=== PATIENT | female | born 1960 | race Caucasian/White ===

== ENCOUNTER 2021-08-01 15:35 | Emergency (ER) | payer MEDICAID, OTHER ==
[~2021-08-01] VITALS: Ht 170.2 cm; Wt 104.3 kg
[~2021-08-01 15:35] MED LIST: HYDR25TA32 PO; RABE20EC17 PO; [UNRECOGNIZED DRUG - CODE] PO
[2021-08-01] MEDS ORDERED: ONDANSETRON 4 MG/2 ML VIAL IVP ONE (15:55)
[2021-08-01] MEDS ORDERED: NACL 0.9% 2,000 ML IV ONE (15:55)
--- NOTE | 2021-08-01 16:01 | NUR ---
Patient W/C assisted to bed 05.
[2021-08-01 16:07] VITALS: BP 114/70
--- NOTE | 2021-08-01 16:15 | NUR ---
EMT at bedside for EKG
--- NOTE | 2021-08-01 16:20 | NUR ---
60 y/o F referred by Dr. Veliz for generalized weakness, nausea + vomiting x 10 episodes s/p open surgery hernia repair 6 days ago. Patient A&Ox4, wheelchair assisted, states seen at Dr. Veliz's office for wound recheck and advised for ER evaluation. Pt states 6/10 abdominal pain to surgical site, 6/10, burning/throbbing/constant, radiating across abdomen. Pt states fatigue, dizziness, dry mouth, nausea + vomiting. Pt reports falling d/t dizziness on Thursday, 07/31. Denies LOC from fall; states she lost her balance and the Right side of her head hit the wall. Denies chest pain, SOB, headache, blurry vision. Pt noted with abdominal binder in place in triage. Patient reports [place] at 0900 with no relief to pain. Pt placed into a gown. Bed locked in lowest position, side rails x 1, call light in reach. PMH: S/P HERNIA REPAIR X3 MEDS: ZOFRAN, NORCO ALLERGY: PENICILLIN
--- NOTE | 2021-08-01 16:22 | NUR ---
Patient wheelchair assisted to restroom for urine sample. Steady/even gait. Top hat provided
--- NOTE | 2021-08-01 16:25 | NUR ---
Blood sample handed to CPT Amita at ER bedside
--- NOTE | 2021-08-01 16:28 | NUR ---
Patient unable to provide urine sample at this time. IVF continued. Dr. Tony made aware.
[2021-08-01 16:36] LABS: BASOPHILS % (AUTO) 0.6 % (0.0-2.0); EOSINOPHILS # (AUTO) 0.1 K/uL (0-0.4); HEMATOCRIT 34.1 % (36-48); HEMOGLOBIN 11.3 g/dL (12.0-16.0); LYMPHOCYTES # (AUTO) 0.9 K/uL (2.5-16.5); LYMPHOCYTES % (AUTO) 27.4 % (20.5-51.1); MEAN CORPUSCULAR HEMOGLOBIN 31 pg (27-31); MEAN CORPUSCULAR HGB CONC 33 g/dL (33-37); MEAN CORPUSCULAR VOLUME 93.7 fL (80-94); MONOCYTES # (AUTO) 0.4 K/uL (0.8-1.0); PLATELET COUNT (AUTO) 149 K/uL (140-450); RED BLOOD CELL COUNT(AUTO) 3.64 MIL/uL (4.20-5.40); RED CELL DISTRIBUTION WIDTH 17.3 % (11.6-13.7); WHITE BLOOD COUNT (AUTO) 3.4 K/uL (4.8-10.8)
--- NOTE | 2021-08-01 16:45 | NUR ---
Pt transported to CT by .
--- NOTE | 2021-08-01 16:58 | NUR ---
PT TAKEN TO ER BED 5 VIA WOLFGANGRLIAT.
--- NOTE | 2021-08-01 17:24 | NUR ---
Patient wheelchair assisted to restroom. Top hat provided.
--- NOTE | 2021-08-01 17:30 | NUR ---
patient returned from restroom by W/C. Unable to provide urine sample. Patient given verbal consent for straight catheterization. Dr. Tony made aware
--- NOTE | 2021-08-01 17:40 | NUR ---
# 15 FR Chinchilla catheter with utilizing sterile technique. Immediate return of 65 ml orange urine noted. Urine sample collected and sent to lab. Pt tolerated procedure well. Accompanied by female RN health care liaison for procedure.
[2021-08-01] MEDS ORDERED: MORPHINE SULFATE 4 MG/ML SYR IVP ONE (17:50)
--- NOTE | 2021-08-01 17:50 | NUR ---
Patient reports [address] Tony made aware.
--- NOTE | 2021-08-01 17:51 | NUR ---
CHRISTINE walked to lab and handed to CPT Adia
--- NOTE | 2021-08-01 17:55 | NUR ---
Dr. Tony is reevaluating pt at bedside
--- NOTE | 2021-08-01 18:00 | NUR ---
Patient noted with RR 14 prior to Morphine IVP administration.
--- NOTE | 2021-08-01 18:05 | NUR ---
Patient states + relief to pain. Rates pain 5/10 at this time. Denies nausea. balance wheel screw hole driller in place. RR 12 even/unlabored. Bed locked in lowest position, side rails x 1.
[2021-08-01 18:10] LABS: APPEARANCE,URINE CLEAR (CLEAR); BILIRUBIN,URINE 1+ (NEGATIVE); BLOOD, URINE NEGATIVE (NEGATIVE); COLOR,URINE ORANGE (YELLOW); LEUKOCYTE ESTERASE ,URINE TRACE (NEGATIVE); NITRITE, URINE NEGATIVE (NEGATIVE); UGLUCOSE TRACE (NEGATIVE)
[2021-08-01 18:13] LABS: ALBUMIN 2.7 g/dL (3.4-5.0); ANION GAP 11.6 (8-16); CARBON DIOXIDE 25.9 mmol/L (21-32); CREATININE 0.8 mg/dL (0.6-1.3); MAGNESIUM 1.7 mg/dL (1.8-2.4); POTASSIUM 3.5 mmol/L (3.5-5.1); TOTAL BILIRUBIN 0.9 mg/dL (0.0-1.0)
[2021-08-01 18:28] LABS: RBC,URINE 0-5 /HPF (0-5)
[2021-08-01] MEDS ORDERED: MAG SULF 2000 MG/WATER PREMIX 50 ML IV ONE (18:30)
[2021-08-01] MEDS ORDERED: NITR100C7 PO (18:32)
[2021-08-01 18:47] VITALS: BP 120/62
--- NOTE | 2021-08-01 19:22 | NUR ---
Report and transfer of care endorsed to ANDREINA Jean-Baptiste
--- NOTE | 2021-08-01 19:37 | NUR ---
Dr. Veliz examining patient.
--- NOTE | 2021-08-01 20:19 | NUR ---
PT DECIDED TO LEAVE BEFORE MEDICATION WAS COMPLETE
--- NOTE | 2021-08-01 20:20 | NUR ---
Patient discharged with v/s stable. Written and verbal after care instructions given and explained. Patient verbalized understanding. Ambulatory with steady gait. All questions addressed prior to discharge. Advised to follow up with PMD.
== END 2021-08-01 20:20 | disposition home or self-care (01) ==
LOC: MED 15:35
DX: N39.0 Urinary tract infection, site not specified (principal); R11.10 Vomiting, unspecified; R53.1 Weakness; I10 Essential (primary) hypertension; Z79.899 Other long term (current) drug therapy; Z98.890 Other specified postprocedural states; Z88.0 Allergy status to penicillin
CPT/HCPCS: 36415; 74176; 80053; 81001; 83690; 83735; 84484; 85025; 87086; 96361; 96365; 96375; 99285; J2270; J2405; J3475; 93005